=== PATIENT | male | born 1985 | race African-American/Black ===

== ENCOUNTER 2021-04-29 14:24 | Inpatient (IN) | payer MEDICAID, SELFPAY ==
[~2021-04-29] VITALS: Ht 170.2 cm; Wt 93.0 kg
[2021-04-29 14:30] VITALS: BP_SYST 194
--- NOTE | 2021-04-29 16:00 | NUR ---
CECI Pascual at bedside examining patient.
[2021-04-29] MEDS ORDERED: hydrALAZINE HCL 20 MG/ML VIAL IVP ONE (16:15)
--- NOTE | 2021-04-29 16:54 | NUR ---
Patient to ER bed 5 to gown for evaluation. Side rails up. Report given to MINE OH.
[2021-04-29 17:02] LABS: BASOPHILS # (AUTO) 0.2 K/uL (0.0-0.2); BASOPHILS % (AUTO) 1.4 % (0.0-2.0); EOSINOPHILS % (AUTO) 0.3 % (0.0-4.0); HEMATOCRIT 46.7 % (36-54); HEMOGLOBIN 15.4 g/dL (14.0-18.0); LYMPHOCYTES # (AUTO) 1.2 K/uL (1.0-5.5); LYMPHOCYTES % (AUTO) 8.1 % (20.5-51.5); MEAN CORPUSCULAR HEMOGLOBIN 29 pg (27-31); MEAN CORPUSCULAR HGB CONC 33 % (32-36); MEAN CORPUSCULAR VOLUME 87 fL (79.0-98.0); MONOCYTES # (AUTO) 0.4 K/uL (0.0-1.0); MONOCYTES % (AUTO) 2.9 % (1.7-9.3); NEUTROPHILS # (AUTO) 13.4 K/uL (1.8-7.7); NEUTROPHILS % (AUTO) 87.3 % (40.0-70.0); PLATELET COUNT (AUTO) 178 K/uL (130-430); RED CELL DISTRIBUTION WIDTH 13.4 % (9.0-15.0); WHITE BLOOD COUNT (AUTO) 15.3 K/uL (4.8-10.8)
--- NOTE | 2021-04-29 17:14 | NUR ---
Pt. bib ACLS for chest pain, has hx. of htn. and non compliant in taking his amlodipine, at this time no pain, states feels fine, bp elevated appressoline given as ordered.
[2021-04-29 17:15] LABS: CALCIUM 9.5 mg/dL (8.4-11.0); CREATININE 1.83 mg/dL (0.55-1.30); POTASSIUM 3.5 mmol/L (3.5-5.1)
[2021-04-29 17:22] LABS: ALBUMIN 4.6 g/dL (3.4-4.8); TOTAL BILIRUBIN 0.4 mg/dL (0.0-1.0)
[2021-04-29] MEDS ORDERED: NITROGLYCERIN 1 INCH (GM) OINT. TP ONE (17:30)
[2021-04-29] MEDS ORDERED: MORPHINE 4 MG INJ. 4 MG/ML VIAL IVP ONE (17:30)
[2021-04-29] MEDS ORDERED: NOR10 PO (17:39)
--- NOTE | 2021-04-29 17:39 | NUR ---
medication rec., pt. belonging and notification done
--- NOTE | 2021-04-29 17:40 | NUR ---
ER at bedside discussing results and POC with pt. patient.
--- NOTE | 2021-04-29 19:10 | NUR ---
Received endorsement from day shift, AAOX4, breathing spontaneously at room air,not in distress noted, vital signs taken, BP still elevated. Admitted as a case of NONSTEMI under the care of Dr. Larios to Telemetry, awaiting for bed.
[2021-04-29] MEDS ORDERED: ONDANSETRON HCL 4 MG/2 ML VIAL IVP ONE (19:15)
--- NOTE | 2021-04-29 19:27 | NUR ---
CALLING YELLING AT STAFF. INFORMED THAT STAFF WILL NOT BE TOLERATED BEING YELLED . INFORMED NURSE IS COMING TO ROOM RIGHT NOW. WAS NOTIFIED THAT PATIENT WAS NAUSEOUS AND MEDICATION IS BEING ORDERED.
[2021-04-29] MEDS: hydrALAZINE HCL 20 MG/ML VIAL IVP PRN ×2 (19:38→21:56)
[2021-04-29 20:19] LABS: BARBITURATE, URINE NEGATIVE (NEG <=200); BENZODIAZEPINE, URINE NEGATIVE (NEG <=150); CANNABINOID, URINE POSITIVE (NEG <=50); COCAINE, URINE NEGATIVE (NEG <=150); METHAMPHETAMINES SCREEN,URINE NEGATIVE (NEG <=500); OPIATE, URINE POSITIVE (NEG <=100); PHENCYCLIDINE SCREEN,URINE NEGATIVE (NEG <=25); UR TRICYCLIC ANTIDEPRESSANTS NEGATIVE (NEG <=300); URINE AMPHETAMINE NEGATIVE (NEG <=500); URINE METHADONE NEGATIVE (NEG <=200); URINE OXYCODONE SCREEN NEGATIVE (NEG <=100); URINE PROPOXYPHENE SCREEN NEGATIVE (NEG <=300)
--- NOTE | 2021-04-29 21:20 | NUR ---
Dr. Larios at bedside examined the patient
[2021-04-29] MEDS ORDERED: NALOXONE HCL 0.4 MG/ML AMP (NARCAN) IVP PRN ×2 (22:15)
[2021-04-29] MEDS ORDERED: HYDROcodone/ACETAMIN 10-325 MG TAB PO PRN (22:15)
[2021-04-29] MEDS ORDERED: ONDANSETRON HCL 4 MG/2 ML VIAL IVP PRN (22:15)
[2021-04-29] MEDS ORDERED: HYDROcodone/ACETAMIN 5-325 MG TAB (NORCO/ VICODIN) PO PRN (22:15)
[2021-04-29] MEDS ORDERED: ACETAMINOPHEN 325 MG TABLET PO PRN (22:15)
[2021-04-29] MEDS ORDERED: *HEPARIN PER PHARMACY XX ONE (22:30)
[2021-04-29] MEDS ORDERED: amLODIPine BESYLATE 10 MG TABLET PO ONE (22:30)
[2021-04-29] MEDS ORDERED: ASPIRIN 81 MG TAB.CHEW PO ONE (22:30)
[2021-04-29] MEDS ORDERED: HEPARIN SODIUM,PORCINE 2000 UNITS/0.4 ML BOLUS IVP PRN (22:45)
[2021-04-29] MEDS ORDERED: HEPARIN SODIUM,PORCINE 3000 UNITS/0.6 ML BOLUS IVP PRN (22:45)
[2021-04-29] MEDS: D5/0.45 NS 1,000 ML IV SCH (22:59)
--- NOTE | 2021-04-29 22:59 | NUR ---
Medications given as ordered, health teaching provided and verbalized understanding.
[2021-04-29] MEDS ORDERED: HEPARIN SODIUM,PORCINE 2000 UNITS/0.4 ML BOLUS IVP ONE (23:00)
--- NOTE | 2021-04-29 23:41 | NUR ---
Heparin drip not started, no coagulation profile baseline, Dr. Larios made aware.
--- NOTE | 2021-04-30 00:09 | NUR ---
echocardiography tech at bedside, blood drawn for coagulation profile
--- NOTE | 2021-04-30 00:30 | NUR ---
Patient's code status is FULL CODE STATUS, paperwork completed and placed in chart.
[2021-04-30 00:36] LABS: PROTHROMBIN TIME 10.7 SECS (9.5-12.5)
--- NOTE | 2021-04-30 00:50 | NUR ---
# 20 gauge angiocath placed to right ac. Use of asceptic technique. Opsite placed over site. Blood return noted. Flushed with 10 cc of normal saline. No evidence of infiltration noted. Patient tolerated well.
[2021-04-30] MEDS: HEPARIN 25,000 UNITS in 250 ML PREMIX IV PRN ×2 (00:55→09:21)
--- NOTE | 2021-04-30 01:00 | NUR ---
PTT-25.4, hEPARIN IV bolus and drip initiated as per protocol, double checked by ALTHEA Cottrell, [facility] teaching provided to the patient, verbalized understanding
[2021-04-30] MEDS: NITROGLYCERIN 1 INCH (GM) OINT. TP SCH ×3 (01:04→23:48)
--- NOTE | 2021-04-30 01:23 | NUR ---
Complained of severe headache 04/09, norco 10mg/325mg 1 tab as ordered PRN given
[2021-04-30] MEDS: hydrALAZINE HCL 20 MG/ML VIAL IVP PRN (01:55)
--- NOTE | 2021-04-30 01:55 | NUR ---
BP-181/96mmHg, Hydralazine 1mg IV Q2 as ordered PRN given, health teaching provided and verbalized understanding
--- NOTE | 2021-04-30 02:09 | NUR ---
Transfer to Telemetry [facility] via ACLS protocol. Licensed nurse present. IV present no signs or symptoms of infiltration.Report given at bedside
--- NOTE | 2021-04-30 02:29 | NUR ---
ADMIT NOTE Received pt from ER to the floor with a diagnosis of non ST elevation NM. Admission process initiated. patient oriented to pain management, safety and call light-teach back done.
--- NOTE | 2021-04-30 02:29 | NUR ---
Endorsed to ALTHEA Benavidez in stable condition for continuity of care
[2021-04-30 02:51] VITALS: BP_SYST 169
--- NOTE | 2021-04-30 03:04 | NUR ---
initial notes: pt is awake, alert,oriented x 4 no chest pain, no sob, not distress, pt only complain is headache, explain to pt that it is the side effects of nitro paste, no skin issue, pt came in with heparin drip at 10cc/hr running to left ac. ivf infusing to right ac. oth infusing well. pt is ambulatory with steady gait. explain plan of care, orient to room and call light, safety. pt verbalized understanding. call light with the pt. low bed position and lock. will monitor.
--- NOTE | 2021-04-30 03:12 | NUR ---
pt vomited due to headache, zofran given already.
--- NOTE | 2021-04-30 03:12 | NUR ---
CONSULT: CONSULT CALLED FOR DR. LISA I SPOKE WITH WITH RANDAL NICOLE REASON FOR CONSULT: NSTEMI REQUESTING CONSULT: DR. CLARKE MILKING WORKER PHONE NUMBER: [phone]
--- NOTE | 2021-04-30 03:12 | NUR ---
HEPARIN DRIP EDUCATION Provided education on the purpose and side effects of anticoagulant therapy to the patient/family. Discussed the importance of follow-up monitoring, medication compliance, drug-food interactions and the potential for adverse drug reactions and interactions-teach back done by the patient.
--- NOTE | 2021-04-30 04:09 | NUR ---
pt is sleeping, comfortable, no sign of pain and distress, stable.
--- NOTE | 2021-04-30 06:30 | NUR ---
closing: pt is sleeping. no sign of pain, ivf and heparin drip infusing well no sign of infiltration. stable on monitor. needs attended the whole shift. will give sbar reporting to am rn.
[2021-04-30 07:40] VITALS: BP_SYST 148
[2021-04-30] MEDS: D5/0.45 NS 1,000 ML IV SCH (08:06)
[2021-04-30] MEDS: ASPIRIN 81 MG TAB.CHEW PO SCH (08:08)
[2021-04-30] MEDS: amLODIPine BESYLATE 10 MG TABLET PO SCH (08:08)
[2021-04-30 08:22] LABS: BASOPHILS # (AUTO) 0.1 K/uL (0.0-0.2); BASOPHILS % (AUTO) 0.3 % (0.0-2.0); EOSINOPHILS % (AUTO) 0.1 % (0.0-4.0); HEMATOCRIT 45.1 % (36-54); LYMPHOCYTES # (AUTO) 1.7 K/uL (1.0-5.5); LYMPHOCYTES % (AUTO) 11.4 % (20.5-51.5); MEAN CORPUSCULAR HEMOGLOBIN 29 pg (27-31); MEAN CORPUSCULAR HGB CONC 33 % (32-36); MEAN CORPUSCULAR VOLUME 86 fL (79.0-98.0); MONOCYTES # (AUTO) 0.9 K/uL (0.0-1.0); MONOCYTES % (AUTO) 5.9 % (1.7-9.3); NEUTROPHILS # (AUTO) 12.3 K/uL (1.8-7.7); NEUTROPHILS % (AUTO) 82.3 % (40.0-70.0); PLATELET COUNT (AUTO) 174 K/uL (130-430); RED BLOOD CELL COUNT(AUTO) 5.26 MIL/uL (4.2-6.2); RED CELL DISTRIBUTION WIDTH 13.2 % (9.0-15.0)
[2021-04-30 08:34] LABS: ALBUMIN 4.1 g/dL (3.4-4.8); CALCIUM 9.1 mg/dL (8.4-11.0); CREATININE 1.72 mg/dL (0.55-1.30); FREE T4 (FREE THYROXINE) 1.2 ng/dl (0.8-1.5); PHOSPHORUS 3.1 mg/dL (2.7-4.5); POTASSIUM 3.7 mmol/L (3.5-5.1); THYROID STIMULATING HORMONE 1.2 uIu/mL (0.36-3.74); TOTAL BILIRUBIN 0.5 mg/dL (0.0-1.0)
--- NOTE | 2021-04-30 09:26 | NUR ---
alert, oriented, appropriate, just finished breakfast, 100% consumption. c/o of headache, secondary to Nitropaste applied earlier. On heparin drip, at 1000 units (10cc/hr) PTT result back, 44.8, heparin drip readjusted to 1100units /hr, in the presence of another rn 's witness. Trop trending upto 9.255, which author took the liberty to repeat now. will monitor his tropin, and chest pain
[2021-04-30] MEDS ORDERED: *LOVENOX 1MG/KG Q24H/PHARMACY XX ONE (09:30)
[2021-04-30] MEDS ORDERED: METOPROLOL TARTRATE 50 MG TABLET PO ONE (09:30)
[2021-04-30] MEDS ORDERED: NACL 0.9% 1,000 ML IV SCH (09:45)
[2021-04-30] MEDS ORDERED: ATORVASTATIN 20 MG TABLET PO ONE (10:15)
[2021-04-30] MEDS ORDERED: ENOXAPARIN SODIUM 100 MG/ML SYRINGE SUBCUT ONE (10:30)
[2021-04-30 12:07] VITALS: BP_SYST 147
[2021-04-30 13:05] LABS: BILIRUBIN,URINE 1+ (NEGATIVE); BLOOD, URINE 1+ (NEGATIVE); GLUCOSE,URINE NEGATIVE (NEGATIVE); KETONES,URINE TRACE (NEGATIVE); LEUKOCYTE ESTERASE ,URINE NEGATIVE (NEGATIVE); NITRITE, URINE NEGATIVE (NEGATIVE); PROTEIN URINE 2+ (NEGATIVE); UROBILINOGEN,URINE 0.2 (0.2-1.0)
[2021-04-30 13:15] LABS: CLARITY/URINE HAZY (CLEAR); COLOR,URINE AMBER (YELLOW)
[2021-04-30 13:26] LABS: BACTERIA,URINE FEW /HPF (None Seen); MUCUS,URINE 1+ /LPF (None Seen); WBC,URINE 0-3 /HPF (0-3)
--- NOTE | 2021-04-30 14:25 | NUR ---
CONSULTATION: REASON FOR CONSULT: NIKKY CONSULTING PHYSICIAN: Rick GARCIA ORDERED BY: TRICIA SPOKE WITH [phone]
[2021-04-30 17:33] VITALS: BP_SYST 138
--- NOTE | 2021-04-30 18:58 | NUR ---
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
[2021-04-30 20:00] VITALS: BP_SYST 158
--- NOTE | 2021-04-30 20:00 | NUR ---
EASILY AROUSABLE. DENIES CHEST PAIN. POX 97%. SELECTIVE COMPLIANCE.
[2021-04-30] MEDS: ENOXAPARIN SODIUM 100 MG/ML SYRINGE SUBCUT SCH ×2 (20:57→21:00)
[2021-04-30] MEDS: METOPROLOL TARTRATE 50 MG TABLET PO SCH (20:58)
--- NOTE | 2021-04-30 21:00 | NUR ---
REFUSED LOVENOX. TOOK LOPRESSOR.
--- NOTE | 2021-04-30 22:00 | NUR ---
TURNS SELF WELL. BRP.
[2021-04-30] MEDS ORDERED: *HEPARIN PER PHARMACY XX PRN (22:45)
--- NOTE | 2021-04-30 23:27 | NUR ---
TROPONIN DRAWN AT 2245 HIGH AT 5.619. MD AWARE TROPONIN HIGH. TRENDING HIMANSHU. PT ALREADY ON LOVENOX.
--- NOTE | 2021-05-01 | NUR ---
IV CHANGED TO 1/2 NS AT 100CC/HR PER INSTRUCTIONS OF DR DISLA TO LATON[place], DAY SHIFT RN RELAYED TO INSTRUCTIONAL DESIGNER RN PER REPORT.
[2021-05-01 00:42] VITALS: BP_SYST 148
--- NOTE | 2021-05-01 04:00 | NUR ---
SOUNDLY ASLEEP. NO DISTRESS NOTED. TURNS SELF WELL.
[2021-05-01] MEDS: NITROGLYCERIN 1 INCH (GM) OINT. TP SCH ×2 (06:00→12:00)
--- NOTE | 2021-05-01 06:00 | NUR ---
SLEPT WELL MOST OF NOC. BRP. REFUSED MEDS. REMAINS IN GUARDED CONDITION.
[2021-05-01 07:32] VITALS: BP_SYST 152
[2021-05-01 08:43] LABS: ALBUMIN 3.7 g/dL (3.4-4.8); CALCIUM 8.8 mg/dL (8.4-11.0); CREATININE 1.55 mg/dL (0.55-1.30); POTASSIUM 4.1 mmol/L (3.5-5.1); TOTAL BILIRUBIN 0.6 mg/dL (0.0-1.0)
[2021-05-01] MEDS: METOPROLOL TARTRATE 50 MG TABLET PO SCH (08:43)
[2021-05-01] MEDS: ASPIRIN 81 MG TAB.CHEW PO SCH (08:44)
[2021-05-01] MEDS: amLODIPine BESYLATE 10 MG TABLET PO SCH (08:45)
[2021-05-01] MEDS: ENOXAPARIN SODIUM 100 MG/ML SYRINGE SUBCUT SCH (08:45)
[2021-05-01] MEDS ORDERED: ATORVASTATIN 20 MG TABLET PO SCH (09:00)
--- NOTE | 2021-05-01 10:12 | NUR ---
Patient to transfer to [facility] at 3PM [phone] to skill labor. Transportation by [facility] [phone]. Discharge disposition [id number]
[2021-05-01 10:45] VITALS: BP_SYST 152
[2021-05-01 11:42] VITALS: BP_SYST 131
--- NOTE | 2021-05-01 14:46 | NUR ---
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 demanded to talk to the substation wireman before patient is transferred out. Dr Camjeo called , Mirta [phone], the phone unanswered. report given to Cardiac slab puller, with all questions answered to their satisfaction. Now awaiting ambulance to quill picking machine operator
--- NOTE | 2021-05-01 14:55 | NUR ---
OF THE PT CALLED TO REQUEST DR LISA TO TALK TO HER BEFORE SENDING HER TO [facility]. NOTIFIED DR LISA OF THE REQUEST. DR LISA WAS NOT ABLE TO GET THROUGH AND REQUESTED ME TO CALL HER AND GIVE MD'S OFFICE NUMBER. I GAVE THE OFFICE NUMBER TO MS JHA, THE OF THE PT.
== END 2021-05-01 14:55 | disposition short-term general hospital (02) | DRG 190 ==
LOC: SED 14:24 → STU 18:06
PROVIDERS: ADMIT Internal Medicine; ATTEND Internal Medicine
DX: I21.4 Non-ST elevation (NSTEMI) myocardial infarction (principal); R65.11 Systemic inflammatory response syndrome (SIRS) of non-infectious origin with acute organ dysfunction; N17.0 Acute kidney failure with tubular necrosis; I13.10 Hypertensive heart and chronic kidney disease without heart failure, with stage 1 through stage 4 chronic kidney disease, or unspecified chronic kidney disease; N18.4 Chronic kidney disease, stage 4 (severe); Z20.822 Contact with and (suspected) exposure to COVID-19; Z60.2 Problems related to living alone; F19.10 Other psychoactive substance abuse, uncomplicated; F17.210 Nicotine dependence, cigarettes, uncomplicated; Z91.14 Patient's other noncompliance with medication regimen; Z79.899 Other long term (current) drug therapy
CPT/HCPCS: 36415; 71045; 76770; 80053; 80061; 80307; 81000; 83735; 83880; 84100; 84439; 84443; 84484; 85025; 85610-TC; 85730-TC; 93005; 93306; 96374; 96375; 99285; G0378; G0481; J0360; J1644; J1650; J2270; J2405

== ENCOUNTER 2023-11-06 23:31 | Emergency (ER) | payer MEDICAID ==
[~2023-11-06] VITALS: Ht 170.2 cm; Wt 90.7 kg
[~2023-11-06 23:31] MED LIST: NOR10 PO
[2023-11-06 23:35] VITALS: BP_SYST 155; PULSE 87; RESP 18; TEMP 99.1; O2SAT 99
[2023-11-07] MEDS ORDERED: BACITRACIN 1 GM OINT TP ONE (00:59)
[2023-11-07] MEDS: KETOROLAC TROMETHAMINE 60 MG/2 ML VIAL IM ONE (01:23)
[2023-11-07] MEDS: cloNIDine HCL 0.1 MG TABLET PO ONE (01:49)
[2023-11-07] MEDS ORDERED: NAPR-1172 PO (02:01)
[2023-11-07] MEDS ORDERED: NOR10 PO (02:01)
[2023-11-07 02:04] VITALS: BP_SYST 145; PULSE 72; RESP 18; O2SAT 97
== END 2023-11-07 02:04 | disposition home or self-care (01) ==
LOC: SED 23:31
DX: S02.2XXA Fracture of nasal bones, initial encounter for closed fracture (principal); S01.511A Laceration without foreign body of lip, initial encounter; S70.12XA Contusion of left thigh, initial encounter; I10 Essential (primary) hypertension; F12.90 Cannabis use, unspecified, uncomplicated; Z79.899 Other long term (current) drug therapy; V89.2XXA Person injured in unspecified motor-vehicle accident, traffic, initial encounter; Y93.89 Activity, other specified; Y92.89 Other specified places as the place of occurrence of the external cause; Y99.8 Other external cause status
CPT/HCPCS: 99285; 70486; 73552; 12011; 71250; 96372; J1885